=== PATIENT | male | born 2000 | race African-American/Black ===

== ENCOUNTER 2022-08-29 12:47 | Emergency (ER) | payer OTHER ==
[2022-08-29 12:54] VITALS: BP 107/65; PULSE 110; RESP 18; TEMP 99.3; BMI 22.6
[2022-08-29] MEDS ORDERED: DIPHTH,PERTUSS(ACELL),TET 0.5 ML DISP.SYRIN IM ONE ×2 (13:09→13:34)
== END 2022-08-29 14:59 | disposition home or self-care (01) ==
LOC: JER 12:47
DX: S61.217A Laceration without foreign body of left little finger without damage to nail, initial encounter (principal); S21.319A Laceration without foreign body of unspecified front wall of thorax with penetration into thoracic cavity, initial encounter; X99.1XXA Assault by knife, initial encounter
CPT/HCPCS: 71045-TC-FY; 76604; 93308; 99285-25